=== PATIENT | female | born 1985 | race Caucasian/White ===

== ENCOUNTER → 2016-09-16 | Outpatient (CLI) | payer OTHER ==
[~2016-09-16] MED LIST: ALBUAER19 INH; DESO0.0562 TOP; LEVOIUD INT UTER
== END | disposition home or self-care (01) ==
LOC: C.PAPS 14:58
PROVIDERS: ATTEND Obstetrics & Gynecology
DX: Z01.419 Encounter for gynecological examination (general) (routine) without abnormal findings (principal)

== ENCOUNTER → 2017-09-22 | Outpatient (CLI) | payer OTHER ==
[~2017-09-22] MED LIST changes: +LEVO1IUD2 INT UTER; -LEVOIUD INT UTER
== END | disposition home or self-care (01) ==
LOC: C.PAPS 14:58
PROVIDERS: ATTEND Obstetrics & Gynecology
DX: Z12.4 Encounter for screening for malignant neoplasm of cervix (principal)